=== PATIENT | female | born 1960 | race Two or more races ===

== ENCOUNTER 2017-02-14 08:56 | Outpatient (CLI) | payer OTHER ==
[~2017-02-14 08:56] MED LIST: CIPRO500 MG PO; FLAGYL500MG PO; INTESTINEX680 MG PO; JANUMET 50-5001 EACH; LEXAPRO5 MG
== END 2017-02-14 10:30 | disposition home or self-care (01) ==
LOC: SONOGRAMA 08:56
DX: R74.0 Nonspecific elevation of levels of transaminase and lactic acid dehydrogenase [LDH] (principal)

== ENCOUNTER 2017-06-15 08:18 | Outpatient (CLI) | payer OTHER ==
[~2017-06-15 08:18] MED LIST changes: -LEXAPRO5 MG; +LEXAPRO5 MG PO
[2017-06-20] MEDS ORDERED: BENICAR HCT 201 EACH PO (10:27)
== END 2017-06-15 08:29 | disposition home or self-care (01) ==
LOC: RAD 08:18
DX: Z01.818 Encounter for other preprocedural examination (principal)

== ENCOUNTER 2017-06-24 05:20 | Day surgery (SDC) | payer OTHER ==
[~2017-06-24 05:20] MED LIST changes: +BENICAR HCT 201 EACH PO
== END 2017-06-24 13:00 | disposition home or self-care (01) ==
LOC: CIR.AMB 05:20
DX: N95.0 Postmenopausal bleeding (principal); N84.0 Polyp of corpus uteri

== ENCOUNTER 2018-03-20 14:16 | Outpatient (CLI) | payer OTHER ==
[2018-03-21] MEDS ORDERED: LIPITOR20 MG PO (10:42)
== END 2018-03-20 14:29 | disposition home or self-care (01) ==
LOC: RAD 14:16
DX: Z01.818 Encounter for other preprocedural examination (principal)

== ENCOUNTER 2018-03-27 05:50 | Day surgery (SDC) | payer OTHER ==
[~2018-03-27 05:50] MED LIST changes: +LIPITOR20 MG PO
== END 2018-03-27 12:30 | disposition home or self-care (01) ==
LOC: CIR.AMB 05:50 → U 05:50 → CIR.AMB 12:30
DX: N95.0 Postmenopausal bleeding (principal)